=== PATIENT | male | born 1965 | race Caucasian/White ===

== ENCOUNTER → 2018-02-03 | Outpatient (CLI) | payer OTHER ==
[~2018-02-03] MED LIST: GINSENG250 MG PO; HYDROCHLOROTHIA25 M1 PO; LEXAPRO 10 MG T10 M1 PO; LOTREL 10-20 M1 EACH PO; XANAX 0.25 MG0.25 MG PO
== END ==
LOC: RAD 14:33
DX: J45.51 Severe persistent asthma with (acute) exacerbation (principal); J98.4 Other disorders of lung

== ENCOUNTER → 2021-06-12 | Outpatient (CLI) | payer OTHER | LOC: RAD 12:31 | PROVIDERS: ATTEND Internal Medicine | DX: J45.50 Severe persistent asthma, uncomplicated (principal) ==